=== PATIENT | female | born 1985 | race African-American/Black ===

== ENCOUNTER 2024-06-07 08:52 | Emergency (ER) | payer MEDICAID ==
[~2024-06-07] VITALS: Ht 157.5 cm; Wt 63.0 kg
[2024-06-07 08:54] VITALS: PULSE 98; RESP 16; O2SAT 100
[2024-06-07 08:59] VITALS: BP 142/96; TEMP 36.5; O2SAT 100
[2024-06-07] MEDS ORDERED: CEPH500C2 MT (09:18)
== END 2024-06-07 09:32 | disposition home or self-care (01) ==
LOC: ER 08:52
DX: L02.412 Cutaneous abscess of left axilla (principal)
CPT/HCPCS: 99283